=== PATIENT | female | born 1990 | race Hispanic/Latino ===

== ENCOUNTER 2018-05-19 09:40 | Emergency (ER) | payer OTHER, SELFPAY ==
[2018-05-19] MEDS ORDERED: Bacitracin Zinc 1 Packet ONE (10:06)
[2018-05-19] MEDS ORDERED: Ketorolac Tromethamine 30 MG/ML VIAL ONE (10:11)
== END 2018-05-19 10:51 | disposition home or self-care (01) ==
LOC: ERS 09:40
DX: O99.89 Other specified diseases and conditions complicating pregnancy, childbirth and the puerperium (principal); S31.119D Laceration without foreign body of abdominal wall, unspecified quadrant without penetration into peritoneal cavity, subsequent encounter; O99.355 Diseases of the nervous system complicating the puerperium; G43.909 Migraine, unspecified, not intractable, without status migrainosus
CPT/HCPCS: J1885